=== PATIENT | female | born 1950 | race Caucasian/White ===

== ENCOUNTER → 2016-10-03 | Outpatient (CLI) | payer MEDICARE, BC ==
[~2016-10-03] MED LIST: DENOSUMAB 60 MG/ML 1 ML SYRINGE SQ NR
[2016-10-03 09:57] VITALS: BP 136/79; PULSE 77; RESP 18; TEMP 98.6
== END | disposition home or self-care (01) ==
LOC: PROCWHC3 09:48
PROVIDERS: ATTEND Internal Medicine
DX: M81.0 Age-related osteoporosis without current pathological fracture (principal)
CPT/HCPCS: 96372; J0897

== ENCOUNTER → 2016-10-14 | Outpatient (CLI) | payer MEDICARE, BC ==
[2016-10-14 07:02] LABS: Blood Urea Nitrogen 19 mg/dL (7-17); Non-African American GFR(MDRD) >60 (>60 ml/min/1.73 sqM)
--- NOTE | 2016-10-14 09:34 | CT ---
EXAMINATION TYPE: CT abdomen pelvis wo/w con DATE OF EXAM: 10/14/2016 8:58 AM HISTORY: Lt sided renal mass CT DLP: 1773mGycm Automated Exposure Control for Dose Reduction was Utilized. CONTRAST: CT scan of the abdomen and pelvis is performed without and with IV Contrast, patient injected with 10 0 mL of Omnipaque 300. COMPARISON: None. FINDINGS: LUNG BASES: There is some dependent atelectasis in both lung bases. There is additional scattered raf ear scarring and/or atelectasis bilaterally. LIVER/GB: There is simple appearing 1.2 cm cyst in the central right hepatic dome on series 3 image 1 3. PANCREAS: There is some generalized fullness of the pancreatic body and tail measuring 2.7 cm in diam eter. No suspicious enhancement or surrounding inflammatory change is seen. Consider correlate with p ancreatic lab values to exclude acute pancreatitis. SPLEEN: No significant abnormality is seen. ADRENALS: No significant abnormality is seen. KIDNEYS: There is 2 mm nonobstructing calculus upper pole level left kidney on axial image 28. There are 2 - 2 mm nonobstructing calculi in right kidney seen best on coronal image 54 lower pole level. T here is symmetric cortical medullary uptake and excretion from both kidneys without evidence of hydro nephrosis bilaterally. From the anterior mid to lower pole level right kidney there is heterogeneous lesion measuring 3.3 x 3.6 cm transversely on axial image 35 series 7 x 2.6 cm in craniocaudal dimens ion on coronal image 40. Just inferior to this there is a lobular extension or second low dense exoph ytic round lesion measuring 1.7 cm on axial image 39. Larger lesion has rim calcification anteriorly. Hounsfield units average 27-30 prior to contrast administration with post contrast images showing Ho unsfield units between 41 and 45, likely some volume averaging from adjacent enhancing kidney but preston e faint enhancement is likely present. There are some additional subcentimeter low dense lesions scat tered throughout both kidneys, right greater than left 2 small to further characterize but presumed b enign. BOWEL: Normal-appearing appendix is seen from cecum. There are diverticula in the sigmoid colon. UTERUS/ADNEXA: Uterus is retroverted in shape LYMPH NODES: No greater than 1cm abdominal or pelvic ly mph nodes are appreciated. OSSEOUS STRUCTURES: No significant abnormality is seen. OTHER: No significant additional abnormality is seen. IMPRESSION: No worrisome left-sided renal mass. There is nonsimple exophytic lesion anteriorly mid po le level right kidney. Hounsfield units are somewhat nonspecific on noncontrast imaging, I do favor c ystic etiology. I cannot exclude some postcontrast enhancement versus volume averaging. Malignant moe ology or neoplasm cannot be excluded. Surgical consultation advised. Consider correlating with renal ultrasound or further investigation with multi phase MRI.
== END | disposition home or self-care (01) ==
LOC: RADCTMAIN 06:36
PROVIDERS: ATTEND Internal Medicine
DX: N28.89 Other specified disorders of kidney and ureter (principal)
CPT/HCPCS: 82565; 84520; 74178; 36415; Q9967

== ENCOUNTER → 2017-03-25 | Outpatient (CLI) | payer MEDICARE, BC ==
--- NOTE | 2017-03-25 10:41 | WWHP ---
[facility] - HISTORY AND PHYSICAL DATE OF SERVICE: 03/25/2017 CHIEF COMPLAINT: The patient is here for her routine gynecologic exam and mammogram. HPI: This is a 67-year-old, G2, P2, with an LMP of 2004. The patient is without gynecologic complaints. She states she did notice an improvement with vaginal dryness with the Estrace vaginal cream and would like to continue using this. She denies any postmenopausal bleeding. 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 She also has arthritis, headaches and history of osteopenia. MEDICATIONS: 1. Crestor 10 mg daily. 2. Namenda 10 mg b.i.d. 3. Propranolol 80 mg b.i.d. 4. Etodolac 400 mg p.o. b.i.d. 5. Maxalt 10 mg p.r.n. 6. Vitamin D 2000 units daily. 7. Multivitamin 1 daily. 8. Prolia injections every 6 months. ALLERGIES: No known drug allergies. 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 SOCIAL HISTORY: She quit smoking in 1988 and has about 1 to 3 alcoholic drinks per day and denies drug use. 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 REVIEW OF SYSTEMS: Weight has been stable. She denies respiratory cardiac or GI problems. She denies maltreatment or falling. : She denies any significant problems with incontinence. PHYSICAL EXAM: Blood pressure 128/83, height 5 feet 3 inches, weight 144 pounds, temperature 98.1, pulse 65. This is a well-developed, well-nourished, white female, who is alert and oriented x3, in no acute distress. The patient does have mild tremors consistent with her past medical history. HEENT is within normal limits. NECK: Supple without mass or thyromegaly. CHEST AND LUNGS: Clear to auscultation. HEART: Regular rate and rhythm. Breasts are without mass or discharge. Axillary exam is negative for adenopathy. BACK: Negative for CVA tenderness. ABDOMEN: Soft, nontender, without palpable masses. PELVIC EXAM: External genitalia reveals [id number] atrophy without lesions. Cervix and vagina reveals prux-cv-gmbwmina atrophy without lesions. The cervix is slightly irregular in shape consistent with previous conization of the cervix. There are no cervical lesions. Uterus is mid position, nongravid size and nontender. There are no palpable adnexal masses or tenderness. Rectovaginal exam is negative for mass or tenderness and is negative for occult blood. EXTREMITIES: Nontender. IMPRESSION: 1. A 67-year-old, menopausal female, with normal gynecologic exam. 2. Vaginal dryness improved with Estrace vaginal cream. 3. History of osteopenia. She is on Prolia as prescribed by her primary care physician. PLAN: 1. Pap smear was deferred since she had a normal one last year. 2. Self breast examination was discussed. 3. Mammogram will be done today. 4. Bone density testing will be done today. She will continue treatment with Dr. Phelan as she has done in the past. 5. She does get flu shots in the fall and will be getting this when available. 6. Continue Estrace vaginal cream 1 to 2 grams intravaginally twice a week. 7. She will return in 1 year. MMODL / IJN: [id number] /
--- NOTE | 2017-03-25 11:23 | BD ---
EXAMINATION TYPE: MG DEXA axial skeleton. DATE OF EXAM: 03/25/2017 COMPARISON: 2014 CLINICAL HISTORY: OSTEOPOROSIS Height: 5'3 Weight: 143 FRAX RISK QUESTIONS: Alcohol (3 or more units per day): no Family History (Parent hip fracture): no Glucocorticoids (More than 3mos): no (Ex: prednisone, prednisolone, methylprednisolone, dexamethasone, and hydrocortisone). History of Fracture in Adulthood: no Secondary Osteoporosis: 1. Type 1 Diabetes: no 2. Hyperthyroidism: no 3. Menopause before 45: no 4. Malnutrition: no 5. Chronic liver disease: no Rheumatoid Arthritis: no Current Tobacco Use: no RISK FACTORS HISTORY OF: Family History of Osteoporosis: Diet low in dairy products/other sources of calcium: Postmenopausal woman: MEDICATIONS: Osteoporosis Medications: Which medication: Prolia How Lon year Additional Medications: Crestor, headaches, pain tremors, Additional History: osteoporosis EXAM MEASUREMENTS: Bone mineral densitometry was performed using the Visiarc System. Bone mineral density as measured about the Lumbar spine is: ----- L1-L4(G/cm2): 1.488 T Score Values are as follows: ----- L2: 2.6 ----- L3: 3.1 ----- L4: 3.0 ----- L1-L4: 2.6 Bone mineral density has: Increased 9.7% since study of: 01/16/2011 Bone mineral density about the R hip (g/cm2): 0.744 Bone mineral density about the L hip (g/cm2): 0.895 T Score values are as follows: -----R Neck: -2.1 -----L Neck: -1.0 -----R Total: -1.5 -----L Total: -1.9 Bone mineral density has: Increased 4.3% since study of: 01/16/2011 IMPRESSION: Osteopenia (T Score between -2.5 and -1 as noted by T score values Eligio Hips There is slightly increased risk of fracture and the patient may be considered for treatment. Re-Screen 2-5 years. NOTE: T-SCORE=SD OF THE YOUNG ADULT MEAN.
--- NOTE | 2017-03-27 06:58 | MM ---
Reason for exam: screening (asymptomatic). Last mammogram was performed 1 year and 2 months ago. History: Patient is postmenopausal. Family history of breast cancer in aunt. Benign excisional biopsy of the left breast, 2002. Physical Findings: A clinical breast exam by your physician is recommended on an annual basis and results should be correlated with mammographic findings. MG Screening Mammo w CAD Bilateral CC and MLO view(s) were taken. Prior study comparison: February 05, 2016, bilateral MG screening mammo w CAD. July 12, 2014, bilateral MG screening mammo w CAD. The breast tissue is heterogeneously dense. This may lower the sensitivity of mammography. Finding: There are a few typically benign round calcifications in both breasts. There is no discrete abnormality. ASSESSMENT: Benign, BI-RAD 2 RECOMMENDATION: Routine screening mammogram of both breasts in 1 year.
== END ==
LOC: WWCWWP 08:30
PROVIDERS: ATTEND Obstetrics & Gynecology
DX: Z12.31 Encounter for screening mammogram for malignant neoplasm of breast (principal); M85.851 Other specified disorders of bone density and structure, right thigh; M85.852 Other specified disorders of bone density and structure, left thigh
CPT/HCPCS: 77080; G0202

== ENCOUNTER → 2017-04-07 | Outpatient (CLI) | payer MEDICARE, BC ==
[~2017-04-07] MED LIST changes: -DENOSUMAB 60 MG/ML 1 ML SYRINGE SQ NR; +DENOSUMAB 60 MG/ML 1 ML SYRINGE SQ ONE
[2017-04-07 13:58] VITALS: BP 134/76; PULSE 65; RESP 16
== END | disposition home or self-care (01) ==
LOC: PROCWHC3 13:43
PROVIDERS: ATTEND Internal Medicine
DX: M81.0 Age-related osteoporosis without current pathological fracture (principal)
CPT/HCPCS: 96372; J0897

== ENCOUNTER → 2017-04-17 | Outpatient (CLI) | payer MEDICARE, BC ==
--- NOTE | 2017-04-17 10:27 | US ---
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 Stenosis EXAM MEASUREMENTS: RIGHT: Peak Systolic Velocity (PSV) cm/sec ----- Right CCA: 77.3 ----- Right ICA: 70.7 ----- Right ECA: 63.7 ICA/CCA ratio: 0.9 RIGHT: End Diastole cm/sec ----- Right CCA: 23.2 ----- Right ICA: 24.7 ----- Right ECA: 6.7 LEFT: Peak Systolic Velocity (PSV) cm/sec ----- Left CCA: 67.8 ----- Left ICA: 67.9 ----- Left ECA: 51.3 ICA/CCA ratio: 1.0 LEFT: End Diastole cm/sec ----- Left CCA: 17.2 ----- Left ICA: 28.5 ----- Left ECA: 5.8 VERTEBRALS (direction of flow): Right Vertebral: Antegrade Left Vertebral: Antegrade Rhythm: Normal No elevated velocities, no significant stenosis. IMPRESSION: No evidence of hemodynamically significant stenosis within either carotid system, unchan ged from the prior.
--- NOTE | 2017-04-17 12:51 | ECHOF ---
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 This was a technically adequate study. The left ventricular size is normal. Overall left ventricular systolic function is normal with, an EF between 55 - 60 %. The right ventricle is normal in size. LA is moderately dilated 34-39 ml/m2 The right atrial size is normal. The aortic valve is trileaflet, and appears structurally normal. No aortic stenosis or regurgitation. Mild mitral regurgitation is present. Mild tricuspid regurgitation present. There is no evidence of pulmonary hypertension. The right ventricular systolic pressure, as measured by Doppler, is 33.34mmHg. There is no pulmonic regurgitation present. The aortic root size is normal. There is no pericardial effusion. CONCLUSIONS -------- 1. The left ventricular size is normal. 2. There is no pericardial effusion. 3. Overall left ventricular systolic function is normal with, an EF between 55 - 60 %. 4. LA is moderately dilated 34-39 ml/m2 5. The aortic valve is trileaflet, and appears structurally normal. No aortic stenosis or regurgitation. 6. Mild mitral regurgitation is present. 7. Mild tricuspid regurgitation present. 8. There is no evidence of pulmonary hypertension. 9. The right ventricular systolic pressure, as measured by Doppler, is 33.34mmHg. 10. There is no pulmonic regurgitation present. BLUEPRINT CLERK: Vy Mcconnell RDCS
== END | disposition home or self-care (01) ==
LOC: RADECHMAIN 08:20
PROVIDERS: ATTEND Internal Medicine
DX: I08.1 Rheumatic disorders of both mitral and tricuspid valves (principal); I65.23 Occlusion and stenosis of bilateral carotid arteries
CPT/HCPCS: 93306; 93880

== ENCOUNTER → 2017-10-12 | Outpatient (CLI) | payer MEDICARE, BC ==
[2017-10-12 09:36] VITALS: BP 164/81; PULSE 71; RESP 18; TEMP 99.3
== END | disposition home or self-care (01) ==
LOC: PROCWHC3 09:13
PROVIDERS: ATTEND Internal Medicine
DX: M81.0 Age-related osteoporosis without current pathological fracture (principal)
CPT/HCPCS: 96372; J0897

== ENCOUNTER → 2018-04-07 | Outpatient (CLI) | payer MEDICARE, BC ==
[2018-04-07 08:57] VITALS: BP 134/78; PULSE 65; TEMP 97.8; BMI 24.7
--- NOTE | 2018-04-07 09:32 | P.HPOB ---
History of Present Illness H&P Date: 04/07/18 Chief Complaint: The patient is here for her routine gynecologic exam and mammogram. This is a 68-year-old with an LMP of 2004. The patient is without gynecologic complaints. She denies any postmenopausal bleeding. She states she has done very well with Estrace vaginal cream which has improved vaginal dryness with intercourse. She would like to continue using this. Review of Systems She has lost 4 pounds over the last year. She denies respiratory, cardiac and G.I. problems. She denies maltreatment or problems with falling. : she denies any significant problems with urinary leakage. 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 PAST ONCOLOGY REGISTRAR HISTORY: She has no history of STDs. She did have a cold knife quantization of the cervix in 1981. History of Any Multi-Drug Resistant Organisms: None Reported Past Surgical History: Back Surgery, Breast Surgery (Left breast biopsy 2003) Additional Past Surgical History / Comment(s): D&C, trigger finger, cold knife colonization of the cervix. Colonoscopy 2013 (4th). 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 She is sexually active. - Past Family History Father Additional Family Medical History / Comment(s): tremors Mother Family Medical History: Cancer (pancreatic Ca) Additional Family Medical History / Comment(s): Maternal aunt had breast cancer. Medications and Allergies Home Medications Medication Instructions Recorded Confirmed Type Cholecalciferol [Vitamin D3] 2,000 unit PO DAILY@1200 04/03/15 04/07/18 History Etodolac [Lodine] 400 mg PO BID 04/03/15 04/07/18 History Memantine [Namenda] 10 mg PO BID 04/03/15 04/07/18 History Multivitamins, Thera [Theragran] 1 each PO DAILY 04/03/15 04/07/18 History Propranolol HCl 80 mg PO BID 04/03/15 04/07/18 History Rizatriptan Benzoate [Maxalt] 10 mg PO DIRECTED PRN 04/03/15 04/07/18 History Rosuvastatin Calcium [Crestor] 10 mg PO DAILY 04/03/15 04/07/18 History Calcium Carbonate [Calcium] 600 mg PO DAILY 04/07/16 04/07/18 History Denosumab [Prolia] 60 mg SQ DIRECTED 04/07/16 04/07/18 History Vitamin D3/Folic Acid [Zavara 1 tab PO DAILY 04/07/16 04/07/18 History 5,750 Unit-1 mg Cap] Allergies Allergy/AdvReac Type Severity Reaction Status Date / Time No Known Allergies Allergy Verified 10/12/17 09:33 Exam Vital Signs Temp Pulse BP 04/07/18 08:51 97.8 F 65 134/78 Intake and Output 04/06/18 04/07/18 04/07/18 22:59 06:59 14:59 Other: Weight 63.503 kg Height 5'3", BMI 24.8. This is a well-developed well-nourished white female who is alert and oriented times 3 in no acute distress. HEENT: Within normal limits. NECK: Supple without mass or thyromegaly. CHEST AND LUNGS: Clear to auscultation. HEART: Regular rate and rhythm. BREASTS: Are without mass or discharge. AXILLARY EXAM: Negative for adenopathy. BACK: Negative for CVA tenderness. ABDOMEN: Soft, nontender, without palpable masses. PELVIC EXAM: Normal external genitalia with mild to moderate atrophy. Cervix and vagina appear normal with mild to moderate atrophy. There is no unusual discharge. There is no evidence of prolapse. The uterus is midposition, nongravid size and nontender. There are no palpable adnexal masses or tenderness. RECTAL EXAM: recto vaginal exam is negative for mass or tenderness and is negative for occult blood. EXTREMITIES: Nontender. IMPRESSION: 1. 68 year old menopausal female with normal gynecologic exam. 2. Vaginal dryness secondary to atrophy improved with Estrace vaginal cream. 3. History of osteopenia on Prolia as prescribed by her primary care physician. PLAN: 1. Pap smear was performed. 2. Self breast awareness was discussed with the patient. 3. Screening mammogram will be done today. 4. Osteoporosis prevention was discussed. Bone density testing and treatment with Prolia will be done through her primary care physician as she has done in the past. 5. The prescription for Estrace vaginal cream will be sent to the Pharm[facility] place at [facility]. 6. The patient is planning on getting her flu shot in April. 7. She will return in one year.
--- NOTE | 2018-04-08 13:43 | MM ---
Reason for exam: screening (asymptomatic). Last mammogram was performed 1 year ago. History: Patient is postmenopausal. Family history of breast cancer in aunt. Benign excisional biopsy of the left breast, 2002. Physical Findings: A clinical breast exam by your physician is recommended on an annual basis and results should be correlated with mammographic findings. MG Screening Mammo w CAD Bilateral CC and MLO view(s) were taken. Prior study comparison: March 25, 2017, bilateral MG screening mammo w CAD. February 05, 2016, bilateral MG screening mammo w CAD. The breast tissue is heterogeneously dense. This may lower the sensitivity of mammography. There are benign appearing round calcifications bilaterally. There is no discrete abnormality. ASSESSMENT: Benign, BI-RAD 2 RECOMMENDATION: Routine screening mammogram of both breasts in 1 year.
== END | disposition home or self-care (01) ==
LOC: WWCWWP 08:09
PROVIDERS: ATTEND Obstetrics & Gynecology
DX: Z12.31 Encounter for screening mammogram for malignant neoplasm of breast (principal)
CPT/HCPCS: 77067

== ENCOUNTER → 2018-08-30 | Outpatient (CLI) | payer MEDICARE ==
--- NOTE | 2018-08-30 15:59 | US ---
EXAMINATION TYPE: US kidneys/renal and bladder DATE OF EXAM: 08/30/2018 COMPARISON: CT CLINICAL HISTORY: Malignant neoplasm of right kidney. Followup from resection of right renal neoplasm 2017; prior renal stones EXAM MEASUREMENTS: Right Kidney: 9.8 x 5.5 x 4.4 cm Left Kidney: 9.7 x 4.9 x 5.6 cm Post Void Residual Volume: 4.0 mL Right Kidney: lower pole vessel wall calcification is noted as parallel hyperechoic lines Left Kidney: No hydronephrosis or masses seen Bladder: wnl Bilateral Jets seen: yes Normal Post Void Residual: yes IMPRESSION: No suspicious changes to suggest recurrent right renal neoplasm based on ultrasound.
== END | disposition home or self-care (01) ==
LOC: RADUSWWP 15:09
PROVIDERS: ATTEND Urology
DX: C64.1 Malignant neoplasm of right kidney, except renal pelvis (principal)
CPT/HCPCS: 76770

== ENCOUNTER → 2019-04-20 | Outpatient (CLI) | payer MEDICARE ==
[2019-04-20 08:44] VITALS: BP 133/82; PULSE 74; RESP 18; TEMP 98.1; BMI 24.3
--- NOTE | 2019-04-20 09:22 | P.HPOB ---
History of Present Illness H&P Date: 04/20/19 Chief Complaint: The patient is here for her routine gynecologic exam. This is a 69-year-old with an LMP of 2004. The patient is without gynecologic complaints. She states she has done well with Estrace vaginal cream which has helped with vaginal dryness. She would like to continue using this. Review of Systems She has lost about 3 pounds over the last year. She denies respiratory, cardiac and G.I. problems. She denies maltreatment or problems with falling. : she denies any significant problems with urinary leakage. 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 She did have a cold knife quantization of the cervix in 1981. History of Any Multi-Drug Resistant Organisms: None Reported Past Surgical History: Back Surgery, Breast Surgery Additional Past Surgical History / Comment(s): D&C, trigger finger, cold knife colonization of the cervix. Colonoscopy 2018 (5th,next after 5yrs). 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 She is sexually active. - Past Family History Father Additional Family Medical History / Comment(s): tremors Mother Family Medical History: Cancer Additional Family Medical History / Comment(s): Pancreatic cancer. Maternal aunt had breast cancer. Medications and Allergies Home Medications Medication Instructions Recorded Confirmed Type Cholecalciferol [Vitamin D3] 2,000 unit PO DAILY@1200 04/03/15 04/20/19 History Etodolac [Lodine] 400 mg PO BID 04/03/15 04/20/19 History Memantine [Namenda] 10 mg PO BID 04/03/15 04/20/19 History Multivitamins, Thera [Theragran] 1 each PO DAILY 04/03/15 04/20/19 History Propranolol HCl 80 mg PO BID 04/03/15 04/20/19 History Rizatriptan Benzoate [Maxalt] 10 mg PO DIRECTED PRN 04/03/15 04/20/19 History Rosuvastatin Calcium [Crestor] 10 mg PO DAILY 04/03/15 04/20/19 History Calcium Carbonate [Calcium] 600 mg PO DAILY 04/07/16 04/20/19 History Denosumab [Prolia] 60 mg SQ DIRECTED 04/07/16 04/20/19 History Estradiol Cream [Estrace Cream 1 gm VAGINAL DIRECTED #1 tube 04/07/18 04/20/19 Rx 0.01%] Allergies Allergy/AdvReac Type Severity Reaction Status Date / Time No Known Allergies Allergy Verified 04/20/19 08:44 Exam Vital Signs Temp Pulse Resp BP Pulse Ox 04/20/19 08:36 98.1 F 74 18 133/82 99 Intake and Output 04/19/19 04/20/19 04/20/19 22:59 06:59 14:59 Other: Weight 62.142 kg Height 5 feet 3 inches, weight 137 pounds, BMI 24.3. This is a well-developed well-nourished white female who is alert and oriented times 3 in no acute distress. HEENT: Within normal limits. NECK: Supple without mass or thyromegaly. CHEST AND LUNGS: Clear to auscultation. HEART: Regular rate and rhythm. BREASTS: Are without mass or discharge. AXILLARY EXAM: Negative for adenopathy. BACK: Negative for CVA tenderness. ABDOMEN: Soft, nontender, without palpable masses. PELVIC EXAM: Normal external genitalia with moderate atrophy. Cervix and vagina appear normal with moderate atrophy. There is no unusual discharge. There is no evidence of prolapse. The uterus is midposition, nongravid size and nontender. There are no palpable adnexal masses or tenderness. RECTAL EXAM: Rectovaginal exam is negative for mass or tenderness and is negative for occult blood. EXTREMITIES: Nontender. IMPRESSION: 1. 69-year-old menopausal female with normal gynecologic exam. 2. Doing well using Estrace vaginal cream for vaginal dryness secondary to atrophy. 3. History of osteopenia on Prolia as prescribed by her primary care physician. PLAN: 1. Pap smears will be discontinued. She has had negative Pap smears on 04/07/2018, 02/05/2016, and 05/31/2013. She did have a previous conization of the cervix in 1981, but this was not for dysplasia. She has had no other cervical problem. She has been adequately screened and is greater than 65 years of age. 2. Self breast awareness was discussed with the patient. 3. Screening mammogram is scheduled for 04/27/2018. The order slip was given to the patient for this. 4. Osteoporosis prevention was discussed. I have stressed the importance of adequate calcium, vitamin D and regular exercise. Recommended amounts of calcium and vitamin D were also discussed. She is scheduled for bone density test through her PCP on 05/07/2018. 5. Continue Estrace vaginal cream 1 g intravaginally twice weekly. The electronic prescription will be sent to [facility] pharmacy in [facility]. 6. She did receive her flu shot this fall. 7. The patient was advised to return in 1-2 years for her well woman examination.
== END ==
LOC: WWCWWP 08:28
PROVIDERS: ATTEND Obstetrics & Gynecology
DX: Z53.9 Procedure and treatment not carried out, unspecified reason (principal)

== ENCOUNTER → 2019-04-27 | Outpatient (CLI) | payer MEDICARE ==
--- NOTE | 2019-04-27 10:48 | BD ---
EXAMINATION TYPE: Axial Bone Density DATE OF EXAM: 04/27/2019 COMPARISON: 03/25/2017 CLINICAL HISTORY: M [age] Height: 62.5 IN Weight: 136 LBS FRAX RISK QUESTIONS: Secondary Osteoporosis: 3. Menopause before 45: AGE 55 RISK FACTORS HISTORY OF: Family History of Osteoporosis: YES AUNT(P), GRANDMOTHER(P) Active: YES Postmenopausal woman: AGE 55 MEDICATIONS: Osteoporosis Medications: Which medication: Prolia FOSAMAX How Lon YEARS Additional Medications: CALCIUM, VIT D, PROLIA INJECTIONS EVERY 6 MONTHS, CRESTOR, NAMENDA, PROPRANOL OL, ETODOLAC, MAXALT, EXAM MEASUREMENTS: Bone mineral densitometry was performed using the [employer] System. Bone mineral density as measured about the Lumbar spine is: ----- L1-L4(G/cm2): 1.425 T Score Values are as follows: ----- L2: 2.1 ----- L3: 2.4 ----- L4: 2.5 ----- L1-L4: 2.0 Bone mineral density has: Decreased -4.4% since study of: 03/25/2017 Bone mineral density about the R hip (g/cm2): 0.723 Bone mineral density about the L hip (g/cm2): 0.814 T Score values are as follows: -----R Neck: -2.3 -----L Neck: -1.6 -----R Total: -2.3 -----L Total: -1.5 Bone mineral density has: Decreased -6.2% since study of: 03/25/2017 IMPRESSION: Osteopenia (T Score between -2.5 and -1). There is slightly increased risk of fracture and the patient may be considered for treatment. Re-Screen 2-5 years. NOTE: T-SCORE=SD OF THE YOUNG ADULT MEAN.
== END | disposition home or self-care (01) ==
LOC: RADBDWWP 08:40
PROVIDERS: ATTEND Internal Medicine
DX: M85.80 Other specified disorders of bone density and structure, unspecified site (principal)
CPT/HCPCS: 77080

== ENCOUNTER → 2019-04-27 | Outpatient (CLI) | payer MEDICARE ==
--- NOTE | 2019-04-28 09:28 | MM ---
Reason for exam: screening (asymptomatic). Last mammogram was performed 1 year and 1 month ago. History: Patient is postmenopausal and history of other cancer. Family history of breast cancer in aunt. Benign excisional biopsy of the left breast, 2002. Physical Findings: A clinical breast exam by your physician is recommended on an annual basis and results should be correlated with mammographic findings. MG Screening Mammo w CAD Bilateral CC and MLO view(s) were taken. Prior study comparison: April 07, 2018, bilateral MG screening mammo w CAD. March 25, 2017, bilateral MG screening mammo w CAD. The breast tissue is heterogeneously dense. This may lower the sensitivity of mammography. Developing asymmetry right middle depth central aspect. This finding is changed when compared with previous exams. ASSESSMENT: Incomplete: need additional imaging evaluation, BI-RAD 0 RECOMMENDATION: Special view mammogram of the right breast. If lesion persists on supplemental views, image directed ultrasound is recommended. [facility] will attempt to contact patient to return for supplemental views and ultrasound if indicated.
== END | disposition home or self-care (01) ==
LOC: RADMAMWWP 08:37
PROVIDERS: ATTEND Obstetrics & Gynecology
DX: Z12.31 Encounter for screening mammogram for malignant neoplasm of breast (principal)
CPT/HCPCS: 77067

== ENCOUNTER → 2019-05-10 | Outpatient (CLI) | payer MEDICARE ==
--- NOTE | 2019-05-10 11:10 | MM ---
Reason for exam: additional evaluation requested from abnormal screening. Last mammogram was performed less than 1 month ago. History: Patient is postmenopausal and history of other cancer. Family history of breast cancer in aunt. Benign excisional biopsy of the left breast, 2002. Physical Findings: Nurse did not find any significant physical abnormalities on exam. MG 3D Work Up W/Cad RT Spot compression CC, spot compression MLO, and ML view(s) were taken of the right breast. Prior study comparison: April 27, 2019, bilateral MG screening mammo w CAD. April 07, 2018, bilateral MG screening mammo w CAD. There are scattered fibroglandular densities. The questioned focal asymmetry disperses. These results were verbally communicated with the patient and result sheet given to the patient on 05/10/19. ASSESSMENT: Negative, BI-RAD 1 RECOMMENDATION: Return to routine screening mammogram schedule for both breasts.
== END | disposition home or self-care (01) ==
LOC: RADMAMWWP 09:58
PROVIDERS: ATTEND Obstetrics & Gynecology
DX: R92.8 Other abnormal and inconclusive findings on diagnostic imaging of breast (principal)
CPT/HCPCS: 77065; G0279; 77061

== ENCOUNTER → 2019-07-26 | Outpatient (CLI) | payer MEDICARE ==
[2019-07-26 08:50] LABS: HGB 13.1 gm/dL (11.4-16.0); MCH 30.3 pg (25.0-35.0); MCHC 32.7 g/dL (31.0-37.0); MCV 92.5 fL (80.0-100.0); Mean Platelet Volume 8.2; Platelet Count 173 k/uL (150-450); RBC 4.33 m/uL (3.80-5.40); RDW 12.5 % (11.5-15.5); WBC 8.9 k/uL (3.8-10.6)
[2019-07-26 16:27] LABS: African American GFR (CKD) 75.6 (60.0-200.0); Albumin 4.4 g/dL (3.80-4.90); Albumin/Globulin Ratio 2.59 (1.60-3.17); Anion Gap 6.4 mmol/L (4.00-12.00); BUN/Creat Ratio 27.78 Ratio (12.00-20.00); Calcium 9.2 mg/dL (8.7-10.3); Carbon Dioxide 27.6 mmol/L (21.6-31.8); Globulin 1.7 g/dL (1.6-3.3); Non-African American GFR(CKD) 65.2 (60.0-200.0); Potassium 4.6 mmol/L (3.5-5.5); Total Bilirubin 0.5 mg/dL (0.2-1.2); Total Protein 6.1 g/dL (6.2-8.2)
== END | disposition home or self-care (01) ==
LOC: LABWHC1 08:10
PROVIDERS: ATTEND Urology
DX: C64.1 Malignant neoplasm of right kidney, except renal pelvis (principal)
CPT/HCPCS: 36415; 80053; 85027

== ENCOUNTER → 2020-07-18 | Outpatient (CLI) | payer MEDICARE ==
[2020-07-18 07:53] LABS: HGB 13.3 gm/dL (11.4-16.0); MCH 29.6 pg (25.0-35.0); MCHC 31.7 g/dL (31.0-37.0); MCV 93.4 fL (80.0-100.0); Mean Platelet Volume 7.6; Platelet Count 181 k/uL (150-450); RBC 4.49 m/uL (3.80-5.40); RDW 12.6 % (11.5-15.5); WBC 8.3 k/uL (3.8-10.6)
[2020-07-18 07:58] VITALS: BP 157/75; PULSE 74; RESP 18; TEMP 97.7
--- NOTE | 2020-07-18 08:30 | P.HPOB ---
History of Present Illness H&P Date: 07/18/20 Chief Complaint: The patient is here for her routine gynecologic exam and ma mmogram. This is a 70-year-old with an LMP of 2004. The patient is without gynecologic complaints. She states she has used the Estrace vaginal cream which has helped with vaginal dryness but she has not used it consistently. She says her New Year's resolution is to use it more consistently. She is sexually active. Review of Systems Weight has been stable. She denies respiratory, cardiac and G.I. problems. She denies maltreatment or problems with falling. : she denies any significant problems with urinary leakage. 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 She did have a cold knife conization of the cervix in 1981. History of Any Multi-Drug Resistant Organisms: None Reported Past Surgical History: Back Surgery, Breast Surgery Additional Past Surgical History / Comment(s): D&C, trigger finger, cold knife colonization of the cervix. Breast biopsy. Colonoscopy 2018 (5th,next after 5yrs). Past Anesthesia/Blood Transfusion Reactions: No Reported Reaction Past Psychological History: No Psychological Hx Reported Smoking Status: Former smoker Past Alcohol Use History: Daily (2 glasses of wine per day) Past Drug Use History: None Reported Additional History: She has been since 1971 and is sexually active. 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 She watches various children, including one of her grandchildren, during the day. - Past Family History Father Additional Family Medical History / Comment(s): tremors Mother Family Medical History: Cancer Additional Family Medical History / Comment(s): Pancreatic cancer. Maternal aunt had breast cancer. Medications and Allergies Home Medications Medication Instructions Recorded Confirmed Type Cholecalciferol [Vitamin D3] 2,000 unit PO DAILY@1200 04/03/15 07/18/20 History Etodolac [Lodine] 400 mg PO BID 04/03/15 07/18/20 History Multivitamins, Thera [Theragran] 1 each PO DAILY 04/03/15 07/18/20 History Propranolol HCl 80 mg PO BID 04/03/15 07/18/20 History Rizatriptan Benzoate [Maxalt] 10 mg PO DIRECTED PRN 04/03/15 07/18/20 History Rosuvastatin Calcium [Crestor] 10 mg PO DAILY 04/03/15 07/18/20 History Calcium Carbonate [Calcium] 600 mg PO DAILY 04/07/16 07/18/20 History Denosumab [Prolia] 60 mg SQ DIRECTED 04/07/16 07/18/20 History Estradiol Cream [Estrace Cream 1 gm VAGINAL DIRECTED #1 tube 04/20/19 07/18/20 Rx 0.01%] Allergies Allergy/AdvReac Type Severity Reaction Status Date / Time No Known Allergies Allergy Verified 07/18/20 07:49 Exam Vital Signs Temp Pulse Resp BP Pulse Ox 07/18/20 07:52 97.7 F 74 18 157/75 98 Intake and Output 07/17/20 07/18/20 07/18/20 22:59 06:59 14:59 Other: Weight 63.049 kg Height 5 feet 3-1/2 inches, weight 139 pounds, BMI 24.2. This is a well-developed well-nourished white female who is alert and oriented times 3 in no acute distress. HEENT: Within normal limits. NECK: Supple without mass or thyromegaly. CHEST AND LUNGS: Clear to auscultation. HEART: Regular rate and rhythm. BREASTS: Are without mass or discharge. AXILLARY EXAM: Negative for adenopathy. BACK: Negative for CVA tenderness. ABDOMEN: Soft, nontender, without palpable masses. PELVIC EXAM: Normal external genitalia with moderate atrophy. Cervix and vagina appear normal with mild to moderate atrophy. There is no unusual discharge. There is no evidence of prolapse. The uterus is midposition, nongravid size and nontender. There are no palpable adnexal masses or tenderness. RECTAL EXAM: Rectovaginal exam is negative for mass or tenderness and is negative for occult blood. EXTREMITIES: Nontender. IMPRESSION: 1. 70-year-old menopausal female with normal gynecologic exam. 2. The patient has used Estrace vaginal cream for vaginal dryness associated with sexual intercourse and would like to continue this. 3. History of osteopenia on Prolia through her PCP. PLAN: 1. Pap smears have been discontinued. 2. Self breast awareness was discussed with the patient. 3. Screening mammogram will be done today. 4. Osteoporosis prevention was discussed. I have stressed the importance of adequate calcium, vitamin D and regular exercise. Recommended amounts of calcium and vitamin D were also discussed. Bone density testing and the prescribing of Prolia will be done through her PCP as she has done in the past. 5. She did receive her flu shot this fall. She plans on getting the Covid vaccination when available. 6. Continue Estrace vaginal cream as directed. The electronic prescription will be sent to [facility] in [facility] 7. The patient was advised to return in 1-2 years for her well woman examination. Results Result Diagrams: 07/18/20 07:28
[2020-07-18 18:51] LABS: African American GFR (CKD) 101.7 (60.0-200.0); Albumin 4.5 g/dL (3.80-4.90); Albumin/Globulin Ratio 2.14 (1.60-3.17); Anion Gap 9.7 mmol/L (4.00-12.00); BUN/Creat Ratio 31.43 Ratio (12.00-20.00); Calcium 9.3 mg/dL (8.7-10.3); Carbon Dioxide 22.3 mmol/L (21.6-31.8); Globulin 2.1 g/dL (1.6-3.3); Non-African American GFR(CKD) 87.8 (60.0-200.0); Potassium 4.3 mmol/L (3.5-5.5); Total Bilirubin 0.7 mg/dL (0.3-1.2); Total Protein 6.6 g/dL (6.2-8.2)
--- NOTE | 2020-07-23 11:11 | MM ---
Reason for exam: screening (asymptomatic). Last mammogram was performed 1 year and 2 months ago. History: Patient is postmenopausal and history of other cancer. Family history of breast cancer in aunt. Benign excisional biopsy of the left breast, 2002. Physical Findings: A clinical breast exam by your physician is recommended on an annual basis and results should be correlated with mammographic findings. MG 3D Screening Mammo W/Cad Bilateral CC and MLO view(s) were taken. Prior study comparison: April 27, 2019, bilateral MG screening mammo w CAD. April 07, 2018, bilateral MG screening mammo w CAD. March 25, 2017, bilateral MG screening mammo w CAD. The breast tissue is heterogeneously dense. This may lower the sensitivity of mammography. No significant changes when compared with prior studies. ASSESSMENT: Negative, BI-RAD 1 RECOMMENDATION: Routine screening mammogram of both breasts in 1 year.
--- NOTE | 2020-07-31 10:46 | P.PN ---
Progress Note - Text Progress Note Date: 07/31/20 OUTPATIENT FOLLOW-UP NOTE TEST(S)/RESULTS: Test results done on 07/18/2020 include benign mammogram and comprehensive chem panel showing possible dehydration and was otherwise unremarkable. CBC was within normal limits. METHOD OF NOTIFICATION: She was notified by phone. PATIENT COMMENTS: The patient states the blood work was ordered by Dr. Mireles, her lever tender. DIAGNOSIS: Benign mammogram and no significant findings on conference of chem panel and CBC. DISCUSSION: PLAN: The patient was advised to return in 1-2 years for her well woman examination.
== END | disposition home or self-care (01) ==
LOC: WWCWWP 07:01
PROVIDERS: ATTEND Obstetrics & Gynecology
DX: Z12.31 Encounter for screening mammogram for malignant neoplasm of breast (principal); C64.9 Malignant neoplasm of unspecified kidney, except renal pelvis
CPT/HCPCS: 77063; 77067; 80053; 85027

== ENCOUNTER → 2020-07-18 | Outpatient (CLI) | payer MEDICARE ==
--- NOTE | 2020-07-18 07:51 | US ---
EXAMINATION TYPE: US kidneys/renal and bladder DATE OF EXAM: 07/18/2020 COMPARISON: Ultrasound 08/30/2018 CLINICAL HISTORY: 70-year-old female Renal CA R97.1. H/O right renal CA with surgical removal of lesi on TECHNIQUE: Multiple sonographic images of the kidneys and bladder are obtained. FINDINGS: EXAM MEASUREMENTS: Right Kidney: 10.3 x 4.7 x 5.3 cm Left Kidney: 9.7 x 5.3 x 5.0 cm Right Kidney: Possible couple parapelvic cysts in the midpole, largest measures= 1.7 cm. There are ca lcifications at lower pole, possible postsurgical changes . No convincing hydronephrosis. Left Kidney: No hydronephrosis Bladder: wnl Bilateral Jets seen: Yes IMPRESSION: 1. Some post surgical change at the lower pole of the right kidney with calcifications/surgical mater ial along the cortex. 2. Suggestion of a couple parapelvic cysts at the right midpole measuring 1.7 cm.
== END | disposition home or self-care (01) ==
LOC: RADUSWWP 06:59
PROVIDERS: ATTEND Urology
DX: R97.1 Elevated cancer antigen 125 [CA 125] (principal); Z98.890 Other specified postprocedural states
CPT/HCPCS: 76770

== ENCOUNTER → 2021-08-21 | Outpatient (CLI) | payer MEDICARE ==
--- NOTE | 2021-08-21 09:57 | BD ---
EXAMINATION TYPE: Axial Bone Density DATE OF EXAM: 08/21/2021 COMPARISON: 04.27.2019 CLINICAL HISTORY: 71 YR OLD FEMALE......ICD-10 CODE: AR OSTEOPOROSIS Height: 62.5 Weight: 136 FRAX RISK QUESTIONS: Family History (Parent hip fracture): YES RISK FACTORS HISTORY OF: Family History of Osteoporosis: YES, AUNT AND GRANDMOTHER, WITH FX Postmenopausal woman: YES, AT AGE 55 YRS OLD Hyperparathyroidism: NO Adrenal Insufficiency: NO MEDICATIONS: Osteoporosis Medications: PROLIA, FOR 3 YRS, LAST TAKEN 3 YRS AGO Additional Medications: ANTI SEIZURE MEDS, STATINS FOR CHOLESTEROL, VIT D AND CALCIUM, Additional History: TREMORS, CHOLESTEROL, OSTEOPOROSIS EXAM MEASUREMENTS: Bone mineral densitometry was performed using the [employer] System. Bone mineral density as measured about the Lumbar spine is: ----- L1-L4(G/cm2): 1.378 T Score Values are as follows: ----- L1: 0.9 ----- L2: 2.0 ----- L3: 2.2 ----- L4: 1.4 ----- L1-L4: 1.7 Bone mineral density has: Decreased -3.7% since study of: 04.27.2019 Bone mineral density about the R hip (g/cm2): 0.983 Bone mineral density about the L hip (g/cm2): 0.763 T Score values are as follows: -----R Neck: -2.0 -----L Neck: -2.0 -----R Total: -2.6 -----L Total: -1.9 Bone mineral density has: Decreased -6.1% since study of: 04.27.2019 FRAX%s: THERE IS A 19.8% CHANCE FOR A MAJOR OSTEOPOROTIC FX AND 7.0% FOR HIPS.....PROBABILITY FOR FX IN 10 YRS TIME IMPRESSION: Osteoporosis right hip. NOTE: T-SCORE=SD OF THE YOUNG ADULT MEAN.
== END | disposition home or self-care (01) ==
LOC: RADBDWWP 08:29
PROVIDERS: ATTEND Internal Medicine
DX: M81.0 Age-related osteoporosis without current pathological fracture (principal)
CPT/HCPCS: 77080

== ENCOUNTER → 2021-09-03 | Outpatient (CLI) | payer MEDICARE ==
[2021-09-03 14:16] VITALS: BP 155/83; PULSE 80; RESP 16; TEMP 97.5
--- NOTE | 2021-09-03 14:49 | P.HPOB ---
History of Present Illness H&P Date: 09/03/21 Chief Complaint: The patient is here for her routine gynecologic exam and ma mmogram. This is a 71-year-old with an LMP of 2004. The patient is without gynecologic complaints. She would like to continue to use estradiol vaginal cream which helped with vaginal dryness associated with sexual activity. Review of Systems The patient has lost 4 pounds over the last year. She denies respiratory, cardiac, or G.I. problems. 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 She did have a cold knife conization of the cervix in 1981. History of Any Multi-Drug Resistant Organisms: None Reported Past Surgical History: Back Surgery, Breast Surgery Additional Past Surgical History / Comment(s): D&C, trigger finger, cold knife colonization of the cervix. Breast biopsy. Colonoscopy 2018 (5th,next after 5yrs). Past Anesthesia/Blood Transfusion Reactions: No Reported Reaction Past Psychological History: No Psychological Hx Reported Smoking Status: Former smoker Past Alcohol Use History: Daily (2 glasses of wine per day) Past Drug Use History: None Reported Additional History: She has been since 1971 and is sexually active. 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 She watches 2 of her 3 grandchildren during the day. - Past Family History Father Additional Family Medical History / Comment(s): tremors Mother Family Medical History: Cancer Additional Family Medical History / Comment(s): Pancreatic cancer. Maternal aunt had breast cancer. Medications and Allergies Home Medications Medication Instructions Recorded Confirmed Type Cholecalciferol [Vitamin D3] 2,000 unit PO DAILY@1200 04/03/15 09/03/21 History Etodolac [Lodine] 400 mg PO BID 04/03/15 09/03/21 History Multivitamins, Thera [Theragran] 1 each PO DAILY 04/03/15 09/03/21 History Propranolol HCl 80 mg PO DAILY 04/03/15 09/03/21 History Rizatriptan Benzoate [Maxalt] 10 mg PO DIRECTED PRN 04/03/15 09/03/21 History Rosuvastatin Calcium [Crestor] 10 mg PO DAILY 04/03/15 09/03/21 History Calcium Carbonate [Calcium] 600 mg PO DAILY 04/07/16 09/03/21 History Estradiol Cream [Estrace Cream 1 gm VAGINAL DIRECTED #1 tube 07/18/20 09/03/21 Rx 0.01%] Alendronate Sodium 1 caplet PO WEEKLY 09/03/21 09/03/21 History Allergies Allergy/AdvReac Type Severity Reaction Status Date / Time No Known Allergies Allergy Verified 09/03/21 14:04 Exam Vital Signs Temp Pulse Resp BP Pulse Ox 09/03/21 14:11 97.5 F L 80 16 155/83 99 Intake and Output 09/02/21 09/03/21 09/03/21 22:59 06:59 14:59 Other: Weight 61.235 kg Height 5 feet 3 inches, weight 135 pounds, BMI 23.9. This is a well-developed well-nourished white female who is alert and oriented times 3 in no acute distress. She does have some noticeable mild tremors consistent with her history of tremors. HEENT: Within normal limits. NECK: Supple without mass or thyromegaly. CHEST AND LUNGS: Clear to auscultation. HEART: Regular rate and rhythm. BREASTS: Are without mass or discharge. AXILLARY EXAM: Negative for adenopathy. BACK: Negative for CVA tenderness. ABDOMEN: Soft, nontender, without palpable masses. PELVIC EXAM: Normal external genitalia with mild to moderate atrophy. Cervix and vagina appear normal mild to moderate atrophy. There is no unusual discharge. There is no evidence of prolapse. The uterus is midposition, nongravid size and nontender. There are no palpable adnexal masses or tenderness. RECTAL EXAM: There is mild erythema in the perianal area with no excoriation or ulceration. The patient denies noticeable irritation. Rectovaginal exam is negative for mass or tenderness and is negative for occult blood. EXTREMITIES: Nontender. IMPRESSION: 1. 71-year-old menopausal female with normal gynecologic exam. 2. Doing well with estradiol vaginal cream used for vaginal dryness associated with sexual intercourse. 3. Elevated blood pressure. 4. Mild perianal erythema which is asymptomatic. 5. Osteoporosis being treated by her PCP with alendronate. PLAN: 1. Pap smears have been discontinued. 2. Self breast awareness was discussed with the patient. We have also discussed symptoms associated with inflammatory breast cancer. 3. Screening mammogram will be done today. 4. Continue estradiol vaginal cream twice weekly. The electronic prescription will be sent to [facility]. 5. We have discussed her elevated blood pressure. She will check her own blood pressure at home on a regular basis and follow up with her PCP for blood pressure elevations. 6. She has completed her Covid vaccination series and has received her booster. 7. Osteoporosis management was discussed. I have stressed the importance of adequate calcium, vitamin D and regular exercise. Recommended amounts of calcium and vitamin D were also discussed. She will continue to have bone density testing and treatment for osteoporosis done through her PCP as she has done in the past. 8. She was advised to return in one year for her annual well woman exam.
--- NOTE | 2021-09-05 10:45 | MM ---
Reason for exam: screening (asymptomatic). Last mammogram was performed 1 year and 2 months ago. History: Patient is postmenopausal and history of other cancer. Family history of breast cancer in aunt. Benign excisional biopsy of the left breast, 2002. Physical Findings: A clinical breast exam by your physician is recommended on an annual basis and results should be correlated with mammographic findings. MG 3D Screening Mammo W/Cad Bilateral CC and MLO view(s) were taken. Prior study comparison: July 18, 2020, bilateral MG 3d screening mammo w/cad. May 10, 2019, right breast MG 3d work up w/cad RT. The breast tissue is heterogeneously dense. This may lower the sensitivity of mammography. No significant changes when compared with prior studies. ASSESSMENT: Benign, BI-RAD 2 RECOMMENDATION: Routine screening mammogram of both breasts in 1 year.
== END | disposition home or self-care (01) ==
LOC: WWCWWP 13:57
PROVIDERS: ATTEND Obstetrics & Gynecology
DX: Z12.31 Encounter for screening mammogram for malignant neoplasm of breast (principal)
CPT/HCPCS: 77063; 77067

== ENCOUNTER → 2021-12-23 | Outpatient (CLI) | payer MEDICARE ==
--- NOTE | 2021-12-23 18:28 | US ---
EXAMINATION TYPE: US carotid duplex BILAT DATE OF EXAM: 12/23/2021 COMPARISON: NONE CLINICAL HISTORY: 71-year-old female I65.23 OCCLUSION AND STENOSIS, Z13.6 CARDIOVASCULAR. No symptom s. No HTN. TECHNIQUE: Carotid duplex ultrasound examination. Indirect Doppler criteria was utilized. FINDINGS: EXAM MEASUREMENTS: RIGHT: Peak Systolic Velocity (PSV) cm/sec ----- Right CCA: 84.2 ----- Right ICA: 86.4 ----- Right ECA: 80.9 ICA/CCA ratio: 1.0 RIGHT: End Diastole cm/sec ----- Right CCA: 27.0 ----- Right ICA: 29.2 ----- Right ECA: 11.7 LEFT: Peak Systolic Velocity (PSV) cm/sec ----- Left CCA: 73.3 ----- Left ICA: 121.0 ----- Left ECA: 71.3 ICA/CCA ratio: 1.7 LEFT: End Diastole cm/sec ----- Left CCA: 21.5 ----- Left ICA: 45.1 ----- Left ECA: 12.0 VERTEBRALS (direction of flow): Right Vertebral: Antegrade Left Vertebral: Antegrade Rhythm: Normal Lip Cutter notes: No elevated velocities. No significant stenosis. Mild plaque in left bulb. IMPRESSION: No hemodynamically significant internal carotid artery stenosis on either side. Criteria for Assigning % of Stenosis / Diameter reduction (Estimation based on the indirect measurements of the internal carotid artery velocities (ICA PSV). 1. Normal (no stenosis)=ICA PSV < 125 cm/s: ratio < 2.0: ICA EDV<40 cm/s. 2. Less than 50% stenosis=ICA PSV < 125 cm/s: ratio < 2.0: ICA EDV<40 cm/s. 3. 50 to 69% stenosis=ICA PSV of 125 to 230 cm/s: ration 2.0 ? 4.0: ICA EDV 40-100 cm/s. 4. Greater than 70% stenosis to near occlusion= ICA PSV > 230 cm/s: ratio > 4.0: ICA EDV > 100 cm/s. 5. Near occlusion= ICA PSV velocities may be low or undetectable: variable ratio and ICA EDV. 6. Total occlusion=unable to detect flow.
== END | disposition home or self-care (01) ==
LOC: RADUSWWP 13:29
PROVIDERS: ATTEND Internal Medicine
DX: Z13.6 Encounter for screening for cardiovascular disorders (principal); I65.23 Occlusion and stenosis of bilateral carotid arteries
CPT/HCPCS: 75571; 93880

== ENCOUNTER → 2022-02-07 | Outpatient (CLI) | payer MEDICARE ==
[2022-02-07 12:19] LABS: African American GFR (CKD) >90 (>60 ml/min/1.73 sqM); Blood Urea Nitrogen 20 mg/dL (7-17); Non-African American GFR(CKD) 87 (>60 ml/min/1.73 sqM)
--- NOTE | 2022-02-07 13:23 | CT ---
EXAMINATION TYPE: CT abdomen wo/w con CT DLP: 445.8 mGycm, Automated exposure control for dose reduction was used. DATE OF EXAM: 02/07/2022 12:42 PM COMPARISON: CT abdomen 07/26/2021 CLINICAL INDICATION:Female, 72 years old with history of Renal cancer Z85.528; f/u renal ca TECHNIQUE: Standard CT of the abdomen before and after the administration of approximately 70 cc of Isovue-300 intravenously. Oral contrast was administered. Coronal and sagittal reformats were perfor med. FINDINGS: LOWER CHEST: Bibasilar scarring and/or atelectasis. ABDOMEN LIVER: Stable benign 1 cm cyst in the right hepatic dome. No new suspicious hepatic lesions. GALLBLADDER AND BILE DUCTS: Unremarkable. PANCREAS: Unremarkable. SPLEEN: Unremarkable. ADRENAL GLANDS: Unremarkable. KIDNEYS AND URETERS: No hydronephrosis. Postsurgical change with a wedge resection along the anterior right kidney margin. No suspicious nodularity or recurrent mass is identified. Stable nonobstructive bilateral renal calculi. A few scattered subcentimeter hypodensities are stable and too small to lucian racterize. Likely represent benign cortical cyst. STOMACH AND BOWEL: Stomach and duodenum are unremarkable . No focal wall thickening or surrounding in flammatory changes. Colonic diverticulosis without evidence for acute diverticulitis. The appendix is within normal limits. No evidence of bowel obstruction. PERITONEUM: No evidence of pneumoperitoneum or free fluid. VASCULATURE: No evidence of aortic aneurysm. MUSCULOSKELETAL: No acute osseous abnormalities. No suspicious osseous abnormalities. Grade 1 anterol isthesis of L3 on L4. Multilevel degenerative changes of the visualized spine. LYMPH NODES: No enlarged retroperitoneal lymph nodes with index lymph node measuring 5 mm short axis, previously 7 mm. No new concerning lymphadenopathy. SOFT TISSUE/ABDOMINAL WALL: Unremarkable IMPRESSION: 1. No evidence for local recurrence or metastasis status post wedge resection of the anterior right k idney. 2. No concerning lymphadenopathy. Previously seen index lymph node has marginally decreased in size m easuring up to 5 mm. 3. Colonic diverticulosis without evidence for acute diverticulitis. 4. Nonobstructive bilateral renal calculi.
== END | disposition home or self-care (01) ==
LOC: RADCTMAIN 11:33
PROVIDERS: ATTEND Urology
DX: K57.30 Diverticulosis of large intestine without perforation or abscess without bleeding (principal); N20.0 Calculus of kidney; Z85.528 Personal history of other malignant neoplasm of kidney
CPT/HCPCS: 82565; 84520; 74170; 36415; Q9967

== ENCOUNTER → 2022-05-06 | Outpatient (CLI) | payer MEDICARE ==
[2022-05-06 15:11] VITALS: BP 174/96; PULSE 74; RESP 17; TEMP 98.5
--- NOTE | 2022-05-06 15:15 | P.PN ---
Progress Note - Text Progress Note Date: 05/06/22 Chief Complaint: Left pelvic pain which started 4 days ago. HPI: This is a 72-year-old with an LMP of 2004. The patient noticed a sudden pain 4 days ago on the left side of the pelvis. She states it felt like she was ovulating or like someone was pinching something inside of her in that area. She rated the pain at 5 out of 10. It was constant. She noticed it more when laying flat and also noticed it more when her bladder was full. The pain gradually improved and now is rated at a 3 out of 10. She denies urinary frequency, urgency or dysuria. She denies any nausea, vomiting, diarrhea, or constipation. She denies fever. She is sexually active and has not noticed any discomfort with sexual activity. ROS: She denies respiratory, cardiac, or GI problems. Also see the HPI. PE: Blood pressure: 174/96, Height: 5 feet 3 inches, Weight: 136 pounds, Temperature: 98.5, Pulse: 74. Pulse oximeter 100%. This is a well developed, well nourished, white female who is alert and orientedx3, in no acute distress. Abdomen: 1+ bowel sounds. The abdomen is soft with minimal left lower quadrant tenderness with deep palpation. There is no rebound tenderness. There are no palpable masses. External genitalia: Mild to moderate atrophy without lesions. Cervix and vagina appear normal with mild to moderate atrophy. There is no unusual discharge. There is no cervical motion tenderness. Bimanual examination: Uterus is atrophic nongravid size and nontender. There is minimal left adnexal tenderness with bimanual examination. There are no palpable adnexal masses. The right adnexa is nontender. Impression: 1. 72-year-old menopausal female with recent onset of left pelvic pain which has slightly improved. There is left pelvic tenderness which is mild with no palpable pelvic masses. Differential diagnosis will include ovarian neoplasm, hydrosalpinx, diverticular disease, inguinal hernia, pelvic adhesions, as well as other non-gynecologic causes. Plan: 1. Pelvic ultrasound will be ordered. The patient was given the order slip and she will schedule this 2. Patient was instructed to call if she is having worsening symptoms or problems. 3. If the pelvic ultrasound is unremarkable, she will follow up with her PCP for possible additional workup for other non-gynecologic causes. Time spent with the patient: 25 minutes
== END | disposition home or self-care (01) ==
LOC: WWCWWP 14:25
PROVIDERS: ATTEND Obstetrics & Gynecology
DX: Z53.9 Procedure and treatment not carried out, unspecified reason (principal)

== ENCOUNTER → 2022-05-09 | Outpatient (CLI) | payer MEDICARE ==
--- NOTE | 2022-05-09 16:13 | US ---
EXAMINATION TYPE: US pelvic complete DATE OF EXAM: 05/09/2022 COMPARISON: CT abdomen 07/26/2019. CLINICAL HISTORY: R10.2 PELVIC AND PERINEAL PAIN,R68.89. Left pelvic pain TECHNIQUE: Transabdominal (TA). Transabdominal sonographic images of the pelvis were acquired. Date of LMP: DOCTOR OF AUDIOLOGY, EXAM MEASUREMENTS: Uterus: 5.8 x 3.7 x 3.3 cm Endometrial Stripe: 0.3 cm Right Ovary: 3.1 x 2.1 x 1.9 cm Left Ovary: 1.7 x 1.3 x 1.1 cm 1. Uterus: Anteverted Heterogenous. Posterior focal lesion= 1.3 x 1.2 x 1.3 cm 2. Endometrium: wnl 3. Right Ovary: Cystic appearing lesion = 1.9 x 1.9 x 1.7 cm 4. Left Ovary: wnl 5. Bilateral Adnexa: wnl 6. Posterior cul-de-sac: no free fluid IMPRESSION: 1. No evidence for acute process. 2. Fibroid changes.
== END | disposition home or self-care (01) ==
LOC: RADUSWWP 14:05
PROVIDERS: ATTEND Obstetrics & Gynecology
DX: R10.2 Pelvic and perineal pain (principal); R68.89 Other general symptoms and signs
CPT/HCPCS: 76856

== ENCOUNTER → 2022-12-16 | Outpatient (CLI) | payer MEDICARE ==
--- NOTE | 2022-12-17 10:29 | MM ---
Reason for Exam: Screening (asymptomatic). Last mammogram was performed 1 year(s) and 3 month(s) ago. Patient History: Menarche at age 13. First Full-Term at age 25. Postmenopausal. Other cancer. 2002, Benign Excisional Biopsy on the left side. Maternal aunt had breast cancer. Risk Values: Eleanor 5 year model risk: 2.3%. NCI Lifetime model risk: 6.0%. Prior Study Comparison: 05/10/2019 Right Diagnostic Mammogram, [facility]. 07/18/2020 Bilateral Screening Mammogram, [facility]. 09/03/2021 Bilateral Screening Mammogram, [facility]. Tissue Density: The breast tissue is heterogeneously dense. This may lower the sensitivity of mammography. Findings: Analyzed By CAD. A few scattered tiny benign-appearing round calcifications are redemonstrated throughout the bilateral breasts. There is no suspicious group of microcalcifications or new suspicious mass in either breast. Overall Assessment: Benign, BI-RAD 2 Management: Screening Mammogram of both breasts in 1 year. . Patient should continue monthly self-breast exams. A clinical breast exam by your physician is recommended on an annual basis. This exam should not preclude additional follow-up of suspicious palpable abnormalities. Note on Eleanor scores and lifetime risk: 1. A Eleanor score greater than 3% is considered moderate risk. If this is the case, consider specialist referral to assess eligibility for a risk reducing agent. 2. If overall lifetime risk for the development of breast cancer is 20% or higher, the patient may qualify for future screening with alternating mammogram and breast MRI. Electronically signed and approved by: Garth Ferraro M.D.
== END | disposition home or self-care (01) ==
LOC: RADMAMWWP 07:15
PROVIDERS: ATTEND Internal Medicine
DX: Z12.31 Encounter for screening mammogram for malignant neoplasm of breast (principal); Z78.0 Asymptomatic menopausal state; Z80.3 Family history of malignant neoplasm of breast
CPT/HCPCS: 77063; 77067

== ENCOUNTER → 2023-01-16 | Outpatient (CLI) | payer MEDICARE ==
[2023-01-16 16:37] LABS: BUN/Creat Ratio 22.57 Ratio (12.00-20.00); Blood Urea Nitrogen 15.8 mg/dL (9.0-27.0); Calcium 9.5 mg/dL (8.7-10.3); Carbon Dioxide 28.6 mmol/L (21.6-31.8); Chloride 105 mmol/L (96-109); Glucose 93 mg/dL (70-110); Potassium 4.7 mmol/L (3.5-5.5); Sodium 142 mmol/L (135-145)
== END | disposition home or self-care (01) ==
LOC: LABWHC1 09:10
PROVIDERS: ATTEND Urology
DX: C64.9 Malignant neoplasm of unspecified kidney, except renal pelvis (principal)
CPT/HCPCS: 36415; 80048

== ENCOUNTER → 2023-01-19 | Outpatient (CLI) | payer MEDICARE ==
--- NOTE | 2023-01-19 10:30 | XR ---
EXAMINATION TYPE: XR chest 2V DATE OF EXAM: 01/19/2023 COMPARISON: 07/26/2021 INDICATION: Annual physical, history of renal cancer TECHNIQUE: Frontal and lateral views of the chest are obtained. FINDINGS: The heart size is normal. The pulmonary vasculature is normal. Small nodular density appears stable left upper lung field. No suspicious focal consolidations are ev ident. IMPRESSION: 1. No acute pulmonary process.
== END | disposition home or self-care (01) ==
LOC: RADXRMAIN 10:03
PROVIDERS: ATTEND Urology
DX: C64.9 Malignant neoplasm of unspecified kidney, except renal pelvis (principal)
CPT/HCPCS: 71046

== ENCOUNTER → 2023-02-17 | Outpatient (CLI) | payer MEDICARE ==
--- NOTE | 2023-02-17 14:02 | P.PN ---
Progress Note - Text Progress Note Date: 02/17/23 I spoke with the patient by phone on 02/17/2023. The patient is requesting a refill on her estradiol vaginal cream since her prescription has run out. She states she is doing well on the cream. The electronic prescription for estradiol vaginal cream will be sent to [facility]. She will be given a 3 month supply with 2 refills. She will make her annual well woman exam appointment to be seen in August 2023.
== END ==
LOC: WWCWWP 09:25
PROVIDERS: ATTEND Obstetrics & Gynecology
DX: Z04.89 Encounter for examination and observation for other specified reasons (principal); Z00.00 Encounter for general adult medical examination without abnormal findings

== ENCOUNTER → 2023-02-25 | Outpatient (CLI) | payer MEDICARE ==
[2023-02-25 09:22] LABS: African American GFR (CKD) >90 (>60 ml/min/1.73 sqM); Blood Urea Nitrogen 18 mg/dL (7-17); Non-African American GFR(CKD) 89 (>60 ml/min/1.73 sqM)
--- NOTE | 2023-02-25 10:33 | CT ---
EXAMINATION TYPE: CT urogram wo/w con DATE OF EXAM: 02/25/2023 COMPARISON: 02/07/2022 CT. Recent abnormal ultrasound was not performed at this institution. HISTORY: Hx cancerous tumor on RT kidney that was removed. Recent US abnormal findings; unspecified h ydronephrosis CT DLP: 982 mGycm CONTRAST: Performed and with IV Contrast, patient injected with 100 mL of Isovue 370. CT Urography was performed with unenhanced followed by enhanced images of the kidneys, ureters and ur inary bladder. Delayed images were obtained. 3d reconstruction was performed at a separate work sta tion. FINDINGS: KIDNEYS/BLADDER: Postoperative changes right kidney midpole ventrally. There is no evidence for recur rent or residual mass. There is a parapelvic cyst right kidney measuring 2.2 x 1.6 cm. There is no ev idence for hydronephrosis within either kidney. No hydroureter is present. No solid renal lesions are identified at this time. Urinary bladder is well opacified without evidence for wall thickening or m ass. Nonobstructing 3.5 mm calculus lower pole right kidney. LUNG BASES-: No visible nodule. No infiltrate. LIVER/GB: No calcified gallstones. 1.3 cm cyst at the dome of the liver adjacent to the extrahepati c IVC. Biliary tree is of normal caliber. PANCREAS: No inflammation. No distinct mass. SPLEEN: No splenic enlargement. No lesion seen. ADRENALS: No nodule. No thickening. BOWEL: Normal appendix. Normal bowel caliber. No inflammation. Sigmoid diverticulosis without diver ticulitis. GENITAL ORGANS: 2.5 cm right ovarian cyst may be enlarged from prior ultrasound pelvis 05/09/2022. Co nsider repeat pelvic ultrasound. Lobulated appearance of the uterus may reflect fibroid changes. Left ovary is unremarkable. LYMPH NODES: No greater than 1cm abdominal or pelvic lymph nodes are appreciated. AORTA: No significant abnormality. OSSEOUS STRUCTURES: No significant abnormality is seen. OTHER: No significant additional abnormality is seen. IMPRESSION: 1. Postoperative changes right kidney midpole ventrally. There is no evidence for recurrent or residu al mass. 2. Right renal parapelvic cyst without hydronephrosis. 3. Right ovarian cyst may be enlarged. Repeat pelvic ultrasound recommended.
== END | disposition home or self-care (01) ==
LOC: RADCTMAIN 08:23
PROVIDERS: ATTEND Urology
DX: N13.30 Unspecified hydronephrosis (principal); N28.1 Cyst of kidney, acquired; N83.201 Unspecified ovarian cyst, right side; Z48.89 Encounter for other specified surgical aftercare
CPT/HCPCS: 82565; 84520; 74178; 36415; 74400; Q9967

== ENCOUNTER → 2023-09-08 | Outpatient (CLI) | payer MEDICARE ==
--- NOTE | 2023-09-08 22:18 | BD ---
EXAMINATION TYPE: Axial Bone Density DATE OF EXAM: 09/08/2023 CLINICAL HISTORY: 73 years old Female. ICD-10 CODE: M81.0 AGE-RELATED OSTEOPOROSIS W/O CURRENT PATHO LO Height: 62 Weight: 128 FRAX RISK QUESTIONS: Family History (Parent hip fracture): yes, both sides History of Fracture in Adulthood: yes 3. Menopause before 45: no, 55 yrs 4. Malnutrition: pt is very thin RISK FACTORS HISTORY OF: hx of broken ankle as an adult Surgery to Spine for discs only in 1986 UNCONTROLLABLE TREMORS MEDICATIONS: cholesterol meds, seizure meds, vit d and calcium Osteoporosis Medications: yes, prolia, for 3 yrs in the past, alenodronate sodium and tums now. EXAM MEASUREMENTS: Bone mineral densitometry was performed using the ReferStar System. Bone mineral density as measured about the Lumbar spine is: ----- L1-L4(G/cm2): 1.373 T Score Values are as follows: ----- L1: 0.9 ----- L2: 1.9 ----- L3: 1.8 ----- L4: 1.6 ----- L1-L4: 1.6 Z Score Values are as follows: ----- L1: 2.9 ----- L2: 3.9 ----- L3: 3.7 ----- L4: 3.6 ----- L1-L4: 3.6 Bone mineral density has: Decreased -0.5% since study of: 09.10.2021 Bone mineral density about the R hip (g/cm2): 0.669 Bone mineral density about the L hip (g/cm2): 0.760 T Score values are as follows: -----R Neck: -2.0 -----L Neck: -1.9 -----R Total: -2.7 -----L Total: -2.0 Z Score values are as follows: -----R Neck: 0.0 -----L Neck: 0.1 -----R Total: -0.9 -----L Total: -0.1 Bone mineral density has: Decreased -1.1% since study of: 09.10.2021 FRAX%s: The graph provided illustrates a 28.5% chance for a major osteoporotic fx and a 14.0% chance for the hips probability for fx in 10 years time. IMPRESSION: Osteopenia (T Score between -2.5 and -1). There is slightly increased risk of fracture and the patient may be considered for treatment. Re-Screen 2-5 years. NOTE: T-SCORE=SD OF THE YOUNG ADULT MEAN.
== END | disposition home or self-care (01) ==
LOC: RADBDWWP 08:17
PROVIDERS: ATTEND Internal Medicine
DX: M81.0 Age-related osteoporosis without current pathological fracture (principal); M85.89 Other specified disorders of bone density and structure, multiple sites; Z78.0 Asymptomatic menopausal state
CPT/HCPCS: 77080

== ENCOUNTER → 2023-11-10 | Outpatient (CLI) | payer MEDICARE ==
[2023-11-10] MEDS: DENOSUMAB 60 MG/ML 1 ML SYRINGE SQ NR (12:01)
[2023-11-10 12:44] VITALS: BP 151/82; PULSE 76; RESP 16; TEMP 98.5
== END ==
LOC: PROCWHC3 11:46
PROVIDERS: ATTEND Internal Medicine
DX: M81.0 Age-related osteoporosis without current pathological fracture (principal)
CPT/HCPCS: 96372; J0897

== ENCOUNTER → 2023-12-29 | Outpatient (CLI) | payer MEDICARE ==
[2023-12-29 09:40] VITALS: BP 164/88; PULSE 71; RESP 16; TEMP 98.2
--- NOTE | 2023-12-29 10:14 | P.HPOB ---
History of Present Illness H&P Date: 12/29/23 Chief Complaint: The patient is here for her routine gynecologic exam and ma mmogram. This is a 73-year-old with an LMP of 2004. Patient is without gynecologic complaints. She continues to use Premarin vaginal cream for vaginal dryness associated with sexual activity. She recently had a bone density test done through her PCP which showed slight worsening and Prolia was added in addition to the alendronate that she has been taking weekly. They are prescribed by Dr. Phelan. Review of Systems The patient has lost 7 pounds over the last year. She denies respiratory, cardiac, or G.I. problems. 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 She did have a cold knife conization of the cervix in 1981. History of Any Multi-Drug Resistant Organisms: None Reported Past Surgical History: Back Surgery, Breast Surgery Additional Past Surgical History / Comment(s): D&C, trigger finger, cold knife colonization of the cervix. Breast biopsy. Colonoscopy 2018 (5th,next after 10yrs). Past Anesthesia/Blood Transfusion Reactions: No Reported Reaction Past Psychological History: No Psychological Hx Reported Smoking Status: Former smoker Past Alcohol Use History: Daily (Typically 2 glasses of wine per day on most d ays.) Additional Past Alcohol Use History / Comment(s): Quit smoking on 05/20/1989. Past Drug Use History: None Reported Additional History: She has been since 1971 and is sexually active. 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 She watches 2 of her 3 grandchildren during the week. - Past Family History Father Additional Family Medical History / Comment(s): tremors Mother Family Medical History: Cancer Additional Family Medical History / Comment(s): Pancreatic cancer. Maternal aunt had breast cancer. Medications and Allergies Home Medications Medication Instructions Recorded Confirmed Type Etodolac [Lodine] 400 mg PO BID 04/03/15 12/29/23 History Multivitamins, Thera [Theragran] 1 each PO DAILY 04/03/15 12/29/23 History Propranolol HCl 80 mg PO DAILY 04/03/15 12/29/23 History Rizatriptan Benzoate [Maxalt] 10 mg PO DIRECTED PRN 04/03/15 12/29/23 History Alendronate Sodium 1 caplet PO WEEKLY 09/03/21 12/29/23 History Calcium Carbonate [Tums Ultra 2 tab PO DAILY 05/06/22 12/29/23 History Strength] Ezetimibe [Zetia] 10 mg PO DAILY 11/10/23 12/29/23 History Primidone 150 mg PO BID 11/10/23 12/29/23 History Propranolol HCl [Propranolol HCl 120 mg PO HS 11/10/23 12/29/23 History ER] Rosuvastatin [Crestor] 20 mg PO HS 11/10/23 12/29/23 History Topiramate 100 mg PO HS 11/10/23 12/29/23 History Allergies Allergy/AdvReac Type Severity Reaction Status Date / Time No Known Allergies Allergy Verified 12/29/23 09:38 Exam Vital Signs Temp Pulse Resp BP Pulse Ox 12/29/23 09:39 98.2 F 71 16 164/88 98 Intake and Output 12/28/23 12/29/23 12/29/23 22:59 06:59 14:59 Other: Weight 58.06 kg Height 5 feet 3 inches, weight 128 pounds, BMI 22.7. This is a well-developed well-nourished white female who is alert and oriented times 3 in no acute distress. HEENT: Within normal limits. NECK: Supple without mass or thyromegaly. CHEST AND LUNGS: Clear to auscultation. HEART: Regular rate and rhythm. BREASTS: Are without mass or discharge. AXILLARY EXAM: Negative for adenopathy. BACK: Negative for CVA tenderness. ABDOMEN: Soft, nontender, without palpable masses. PELVIC EXAM: Normal external genitalia with moderate atrophy. Cervix and vagina appear normal with mild to moderate atrophy. There is no unusual discharge. There is no evidence of prolapse. The uterus is midposition, nongravid size and nontender. There are no palpable adnexal masses or tenderness. RECTAL EXAM: Rectovaginal exam is negative for mass or tenderness and is negative for occult blood. EXTREMITIES: Nontender. IMPRESSION: 1. 73-year-old menopausal female with normal gynecologic exam. 2. Doing well with Premarin vaginal cream used for vaginal dryness with sexual activity. 3. History of focal osteoporosis treated with Prolia and alendronate. She has been on the alendronate since 2021. Prolia was recently added. 4. Elevated blood pressure. PLAN: 1. Pap smears have been discontinued. 2. Self breast awareness was discussed with the patient. We have also discussed symptoms associated with inflammatory breast cancer. 3. Screening mammogram will be done today. 4. Her elevated blood pressure was discussed. She does have a blood pressure cuff at home and I have recommended that she check her own blood pressure on a regular basis. She will follow-up with her PCP for blood pressure elevations. 5. Osteoporosis management was discussed. I have stressed the importance of adequate calcium, vitamin D and regular exercise. Recommended amounts of calcium and vitamin D were also discussed. She will continue the Prolia and alendronate as directed by her PCP. 6. Continue Premarin vaginal cream 1 g into the vagina 2 times weekly. The electronic prescription will be sent to [facility]. 7. She was advised to return in one year for her annual well woman exam.
--- NOTE | 2023-12-30 08:37 | MM ---
Reason for Exam: Screening (asymptomatic). Last mammogram was performed 1 year(s) and 1 month(s) ago. Patient History: Menarche at age 13. First Full-Term at age 25. Postmenopausal. Other cancer. 2002, Benign Excisional Biopsy on the left side. Maternal aunt had breast cancer. Risk Values: Eleanor 5 year model risk: 2.3%. NCI Lifetime model risk: 5.7%. Prior Study Comparison: 07/18/2020 Bilateral Screening Mammogram, [facility]. 09/03/2021 Bilateral Screening Mammogram, [facility]. 12/16/2022 Bilateral MG 3D screening mammo w/cad, [facility]. Tissue Density: The breasts are heterogeneously dense, which may obscure small masses. Findings: Analyzed By CAD. There is no suspicious group of microcalcifications or new suspicious mass in either breast. Benign calcifications. Overall Assessment: Benign, BI-RAD 2 Management: Screening Mammogram of both breasts in 1 year. . Patient should continue monthly self-breast exams. A clinical breast exam by your physician is recommended on an annual basis. This exam should not preclude additional follow-up of suspicious palpable abnormalities. Note on Eleanor scores and lifetime risk: 1. A Eleanor score greater than 3% is considered moderate risk. If this is the case, consider specialist referral to assess eligibility for a risk reducing agent. 2. If overall lifetime risk for the development of breast cancer is 20% or higher, the patient may qualify for future screening with alternating mammogram and breast MRI. Electronically signed and approved by: Tino Arvizu M.D. Radiologis
== END ==
LOC: WWCWWP 08:55
PROVIDERS: ATTEND Obstetrics & Gynecology
DX: Z12.31 Encounter for screening mammogram for malignant neoplasm of breast (principal); R03.0 Elevated blood-pressure reading, without diagnosis of hypertension; M81.0 Age-related osteoporosis without current pathological fracture; N89.8 Other specified noninflammatory disorders of vagina; Z78.0 Asymptomatic menopausal state; Z80.3 Family history of malignant neoplasm of breast; Z87.891 Personal history of nicotine dependence
CPT/HCPCS: 77063; 77067

== ENCOUNTER → 2024-02-11 | Outpatient (CLI) | payer MEDICARE ==
--- NOTE | 2024-02-11 14:38 | US ---
EXAMINATION TYPE: US carotid duplex BILAT DATE OF EXAM: 02/11/2024 COMPARISON: CLINICAL INDICATION: Female, 74 years old with history of I65.23 CAROTID STENOSIS; No HTN, No hx tia/ stroke TECHNIQUE: Carotid duplex ultrasound examination. Indirect Doppler criteria was utilized. FINDINGS: EXAM MEASUREMENTS: RIGHT: Peak Systolic Velocity (PSV) cm/sec ----- Right CCA: 66.8 ----- Right ICA: 61.6 ----- Right ECA: 58.4 ICA/CCA ratio: 0.9 RIGHT: End Diastole cm/sec ----- Right CCA: 24.1 ----- Right ICA: 11.9 ----- Right ECA: 5.1 LEFT: Peak Systolic Velocity (PSV) cm/sec ----- Left CCA: 64.7 ----- Left ICA: 106.9 ----- Left ECA: 54.9 ICA/CCA ratio: 1.7 LEFT: End Diastole cm/sec ----- Left CCA: 18.6 ----- Left ICA: 31.8 ----- Left ECA: 6.0 VERTEBRALS (direction of flow): Right Vertebral: Antegrade Left Vertebral: Antegrade Rhythm: Normal FISH MACHINE FEEDER NOTES: No elevated velocities or signficant stenosis. IMPRESSION: No evidence for hemodynamically significant stenosis. Criteria for Assigning % of Stenosis / Diameter reduction (Estimation based on the indirect measurements of the internal carotid artery velocities (ICA PSV). 1. Normal (no stenosis)=ICA PSV < 125 cm/s: ratio < 2.0: ICA EDV<40 cm/s. 2. Less than 50% stenosis=ICA PSV < 125 cm/s: ratio < 2.0: ICA EDV<40 cm/s. 3. 50 to 69% stenosis=ICA PSV of 125 to 230 cm/s: ration 2.0 ? 4.0: ICA EDV 40-100 cm/s. 4. Greater than 70% stenosis to near occlusion= ICA PSV > 230 cm/s: ratio > 4.0: ICA EDV > 100 cm/s. 5. Near occlusion= ICA PSV velocities may be low or undetectable: variable ratio and ICA EDV. 6. Total occlusion=unable to detect flow.
--- NOTE | 2024-02-11 17:25 | CA ---
Transthoracic Echo Report Name: Tess Solis Age: 74 Gender: F : 1950 Exam Date: 02/11/2024 13:46 Exam Location: [facility] Ht (in): 63 Wt (lb): 130 Ordering Physician: Jose Phelan MD Attending/Referring Phys: Jose Phelan MD Roll Sheeting Cutter Stacey Summers RDCS Procedure CPT: Indications: I24.0 ACUTE CORONARY THROMBOSIS NOT RESULTING IN M Cardiac Hx: Technical Quality: Fair Contrast 1: Total Dose (mL): Contrast 2: Total Dose (mL): MEASUREMENTS (Male / Female) Normal Values 2D ECHO LV Diastolic Diameter PLAX 4.0 cm 4.2 - 5.9 / 3.9 - 5.3 cm LV Systolic Diameter PLAX 2.5 cm IVS Diastolic Thickness 1.1 cm 0.6 - 1.0 / 0.6 - 0.9 cm LVPW Diastolic Thickness 1.0 cm 0.6 - 1.0 / 0.6 - 0.9 cm LV Relative Wall Thickness 0.5 RV Internal Dim ED PLAX 2.7 cm LA Volume 58.0 cm??? 18 - 58 / 22 - 52 cm??? LA Volume Index 35.7 cm???/m??? 16 - 28 cm???/m??? M-MODE Aortic Root Diameter MM 3.4 cm LA Systolic Diameter MM 2.7 cm LA Ao Ratio MM 0.8 AV Cusp Separation MM 1.6 cm DOPPLER AV Peak Velocity 141.1 cm/s AV Peak Gradient 8.0 mmHg AV Mean Velocity 88.1 cm/s AV Mean Gradient 3.7 mmHg AV Velocity Time Integral 24.8 cm LVOT Peak Velocity 154.6 cm/s LVOT Peak Gradient 9.6 mmHg LVOT Velocity Time Integral 28.4 cm MV Area PHT 2.9 cm??? Mitral E Point Velocity 68.6 cm/s Mitral A Point Velocity 80.2 cm/s Mitral E to A Ratio 0.9 MV Deceleration Time 257.5 ms MV E' Velocity 5.8 cm/s Mitral E to MV E' Ratio 11.7 TR Peak Velocity 254.1 cm/s TR Peak Gradient 25.8 mmHg Right Ventricular Systolic Press 29.7 mmHg FINDINGS Left Ventricle Mildly increased left ventricular wall thickness. Left ventricular cavity size normal. Normal left ventricular systolic function with no obvious regional wall motion abnormalities. Left ventricular ejection fraction is estimated at 55-60 %. Grade 1 diastolic dysfunction. Right Ventricle Normal right ventricular size and function. Right ventricular systolic pressure within normal limits. Right Atrium Normal right atrial size. Left Atrium Mildly increased left atrial volume. Mitral Valve Structurally normal mitral valve. Mild mitral annular calcification. Mitral valve thickened. Aortic Valve Trileaflet aortic valve. No aortic valve stenosis or regurgitation. Tricuspid Valve Structurally normal tricuspid valve. Mild tricuspid regurgitation. Pulmonic Valve Structurally normal pulmonic valve. Pericardium No pericardial effusion. Aorta Normal size aortic root and proximal ascending aorta. CONCLUSIONS Normal LV function Previewed by: Dr. Robert Dow MD (Electronically Signed) Final Date: 11 February 2024 17:25
== END | disposition home or self-care (01) ==
LOC: RADECHMAIN 13:03
PROVIDERS: ATTEND Internal Medicine
DX: I24.0 Acute coronary thrombosis not resulting in myocardial infarction (principal); I65.23 Occlusion and stenosis of bilateral carotid arteries
CPT/HCPCS: 93306; 93880

== ENCOUNTER 2024-02-26 08:32 | Emergency (ER) | payer MEDICARE ==
[2024-02-26] MEDS ORDERED: HYDROmorphone 0.5 MG/0.5 ML SYRINGE ONE (09:04)
[2024-02-26] MEDS ORDERED: KETOROLAC 15 MG/ML 1 ML VIAL ONE (09:04)
[2024-02-26] MEDS ORDERED: Acetaminophen-Codeine 300-30mg TAB ONE (11:46)
[2024-02-26] MEDS ORDERED: ACET/COD 300 MG/30 MG STARTER PACK 6 TAB BTL PO ONE (11:46)
--- NOTE | 2024-03-25 16:35 | XR ---
EXAMINATION TYPE: XR wrist complete LT DATE OF EXAM: 03/25/2024 4:12 PM INDICATION: Patient age:Female; 74 years old; Reason for study: PAIN FROM FALLING; PHH. COMPARISON: None TECHNIQUE: PA, navicular, oblique, and lateral views of the left wrist were obtained. FINDINGS: No acute osseous pathology, joint dislocation, or joint effusion. Degenerative changes vance ntified at the first MCP joint. Soft tissue swelling of the wrist identified. No osseous erosions. Sy novial and TFC calcifications. IMPRESSION: 1. No acute osseous pathology. 2. Osteoarthritic changes at the first MCP joint. 3. Soft tissue swelling along with synovial and TFC calcification may be due to CPPD.
== END 2024-02-26 10:00 | disposition home or self-care (01) ==
LOC: EC 08:32
CPT/HCPCS: 29125; 96372; 99283